=== PATIENT | female | born 1985 | race Caucasian/White ===

== ENCOUNTER 2018-05-17 18:07 | Emergency (ER) | payer MEDICAID ==
[~2018-05-17] VITALS: Ht 175.3 cm; Wt 104.3 kg
[~2018-05-17 18:07] MED LIST: AZO95 MG PO; IBUPROFEN 800800 MG PO; MACROBID 100 M100 M1 PO; ZPAK PO
[2018-05-17] MEDS ORDERED: IRON325 PO (18:21)
[2018-05-17] MEDS ORDERED: PROBIOTIC1 EAC1 PO (18:21)
[2018-05-17] MEDS ORDERED: VITAMINC500 PO (18:21)
[2018-05-17] MEDS ORDERED: MOBIC15 MG PO (19:29)
[2018-05-17 19:30] VITALS: BP 150/98
[2018-05-17] MEDS ORDERED: MEDROLDOSEPACK PO (19:35)
== END 2018-05-18 05:35 | disposition home or self-care (01) ==
LOC: ER 18:07
DX: M79.672 Pain in left foot (principal); M25.572 Pain in left ankle and joints of left foot